=== PATIENT | male | born 1965 | race Caucasian/White ===

== ENCOUNTER → 2022-06-26 | Outpatient (CLI) | payer BC ==
[2022-06-26 14:03] VITALS: BP 124/85; PULSE 91; TEMP 98.5; BMI 33.2
--- NOTE | 2022-06-26 15:30 | P.HPBAR ---
Bariatric H&P - History & Physicial H&P Date: 06/26/22 History & Physicial: Visit/CC: sleeve f/u Patient initial contact: Initial weight: Initial weight in pounds: Height: 5 ft 6 in Initial BMI: Last weight: Current weight: 93.44 kg Current weight in pounds: 206.00 Current BMI: 33.2 Bear body weight (based on NIH guidelines): 64.41 kg Excess body weight loss: The patient is a 56 year-old M who presents for Bariatric Assessment. Patient presents today for sleeve gastric fall. He's not been seen in many years. Patient is having issues with GERD and anemia. Apparently he is iron deficient. Past Medical History Past Medical History: Asthma, GERD/Reflux Additional Past Medical History / Comment(s): anemia History of Any Multi-Drug Resistant Organisms: None Reported Past Surgical History: Appendectomy, Bariatric Surgery Additional Past Surgical History / Comment(s): gastric sleeve 2012. skull fx 1975. right shoulder surgery and repair 2011 Past Anesthesia/Blood Transfusion Reactions: No Reported Reaction Past Psychological History: ADD/ADHD Smoking Status: Never smoker Past Alcohol Use History: Occasional Past Drug Use History: None Reported Surgical - Exam Vital Signs Temp Pulse BP 98.5 F 91 124/85 06/26/22 13:54 06/26/22 13:54 06/26/22 13:54 - General well developed, well nourished, no distress - Eyes PERRL - ENT normal pinna - Neck no masses - Respiratory normal expansion - Cardiovascular Rhythm: regular - Abdomen Abdomen: soft, non tender Bariatric Assessment & Plan Plan: GERD, iron deficient anemia. Patient will undergo EGD and esophagram. Bariatric Checklist Checklist: Plan: Checklist: EGD: 1. Hiatal hernia: 2. H. Pylori: HgbA1c: Vitamin D: Smoking: Primary care physician referral: Psychiatry clearance: Cardiology clearance: Sleep study: Diet journal: VTE risk score: VTE risk level: Rehab needs at discharge:
== END | disposition home or self-care (01) ==
LOC: BARWHC3 13:12
PROVIDERS: ATTEND Surgery
DX: E66.01 Morbid (severe) obesity due to excess calories (principal); R11.2 Nausea with vomiting, unspecified; K21.9 Gastro-esophageal reflux disease without esophagitis; J45.909 Unspecified asthma, uncomplicated; Z98.84 Bariatric surgery status; F90.9 Attention-deficit hyperactivity disorder, unspecified type; D50.9 Iron deficiency anemia, unspecified; Z68.33 Body mass index [BMI] 33.0-33.9, adult
CPT/HCPCS: 99211